=== PATIENT | male | born 1950 | race Caucasian/White ===

== ENCOUNTER → 2020-01-02 14:01 | Outpatient (BNVA) | payer MEDICARE, SELFPAY | PROVIDERS: Referring Provider Family Medicine; Visit Provider Orthopaedic Surgery | DX: M71.9 Bursopathy, unspecified (principal) | CPT/HCPCS: 73560; 73565 ==

== ENCOUNTER → 2024-08-31 10:54 | Outpatient (BNVA) | payer MEDICARE, SELFPAY | PROVIDERS: PCP Family Medicine; Visit Provider Nurse Practitioner Family | DX: R20.2 Paresthesia of skin (principal); L29.89 Other pruritus; L82.1 Other seborrheic keratosis; D23.39 Other benign neoplasm of skin of other parts of face; L81.4 Other melanin hyperpigmentation; Z08 Encounter for follow-up examination after completed treatment for malignant neoplasm; Z85.820 Personal history of malignant melanoma of skin; L57.0 Actinic keratosis | CPT/HCPCS: 17000; 99214 ==